=== PATIENT | male | born 1980 | race Caucasian/White ===

== ENCOUNTER 2020-07-05 09:33 | Outpatient (REF) | payer OTHER, SELFPAY ==
--- NOTE | ~2020-07-05 | XR_ITS ---
EXAMINATION: BILATERAL HAND X-RAY CLINICAL INFORMATION: Pain COMPARISON: None TECHNIQUE: 3 views of each hand FINDINGS: Bone alignment is normal. No fracture or dislocation is seen. The joint spaces are normal. There is a small 1 x 2 mm radiopaque density in the soft tissues projecting over the dorsal left hand overlying the distal shaft of the third metacarpal bone suggestive of a small soft tissue foreign body. Soft tissues are otherwise unremarkable. XR/XR hand RT 2V IMPRESSION: Small radiopaque soft tissue foreign body in the dorsal left hand otherwise unremarkable exam.
--- NOTE | ~2020-07-05 | XR_ITS ---
EXAMINATION: XR HIP, RIGHT CLINICAL INFORMATION: Pain COMPARISON: None TECHNIQUE: Two views of the right hip. FINDINGS: Bones and soft tissues are normal. No fracture. Alignment is anatomic. Hip joint space is maintained. XR/XR hip RT min 2V IMPRESSION: Normal right hip.
--- NOTE | ~2020-07-05 | XR_ITS ---
EXAMINATION: BILATERAL HAND X-RAY CLINICAL INFORMATION: Pain COMPARISON: None TECHNIQUE: 3 views of each hand FINDINGS: Bone alignment is normal. No fracture or dislocation is seen. The joint spaces are normal. There is a small 1 x 2 mm radiopaque density in the soft tissues projecting over the dorsal left hand overlying the distal shaft of the third metacarpal bone suggestive of a small soft tissue foreign body. Soft tissues are otherwise unremarkable. XR/XR hand LT 2V IMPRESSION: Small radiopaque soft tissue foreign body in the dorsal left hand otherwise unremarkable exam.
[2020-07-05 10:24] LABS: Hematocrit 44.2 % (42-52); Hemoglobin 14.7 g/dl (14.0-18.0); Mean Corpuscular HGB Conc 33.3 g/dl (31.0-36.0); Mean Corpuscular Hemoglobin 27.8 pg (27.0-33.0); Mean Corpuscular Volume 83.7 fL (80-98); Mean Platelet Volume 10.8 fL (9.4-12.4); Platelet Count 228 X10*3/uL (160-400); Red Blood Count 5.28 X10*6/uL (4.60-5.80); Red Cell Distribution Width 12.7 % (11.0-16.0)
[2020-07-05 10:41] LABS: Estimated Average Glucose 120 mg/dL; Hemoglobin A1c % 5.8 %
[2020-07-05 10:52] LABS: Alanine Aminotransferase 49 U/L (0-40); Albumin Level 4.6 g/dL (3.5-5.0); Alkaline Phosphatase 118 U/L (39-117); Anion Gap 14 (12-20); Aspartate Amino Transferase 29 U/L (5-37); Bilirubin Total 0.3 mg/dL (0.0-1.0); Blood Urea Nitrogen 20 mg/dL (9-16); Calcium 9.4 mg/dL (8.4-10.2); Carbon Dioxide 26 mmol/L (22-29); Chloride 105 mmol/L (96-108); Cholesterol 238 mg/dL; Estimated Glomerular Filt Rate > 60; Glucose Fasting 107 mg/dL (60-99); HDL Cholesterol 38 mg/dL; LDL Cholesterol Calculated 133 mg/dl; Potassium 4.4 mmol/L (3.3-5.1); Sodium 141 mmol/L (135-145); Total Protein 7.5 g/dL (6.5-8.0); Triglycerides 337 mg/dL
[2020-07-05 11:06] LABS: Creatinine Urine 165.94 mg/dL
[2020-07-05 11:15] LABS: TSH reflex Free T4 0.68 uIU/mL (0.32-4.0)
== END 2020-07-05 09:34 | disposition home or self-care (01) ==
LOC: HO.LAB 09:33
PROVIDERS: PCP Physician Assistant; Visit Provider Physician Assistant
DX: M79.642 Pain in left hand (principal); M25.551 Pain in right hip; M79.641 Pain in right hand; I10 Essential (primary) hypertension; E66.09 Other obesity due to excess calories; Z68.35 Body mass index [BMI] 35.0-35.9, adult
CPT/HCPCS: 36415; 73120; 73502; 80053; 80061; 82043; 83036; 84443; 85027

== ENCOUNTER 2020-12-01 13:49 | Outpatient (REF) | payer OTHER, SELFPAY | END 2020-12-01 13:50 | disposition home or self-care (01) | LOC: HO.LAB 13:49 | PROVIDERS: PCP Physician Assistant; Visit Provider Internal Medicine | DX: Z20.822 Contact with and (suspected) exposure to COVID-19 (principal) | CPT/HCPCS: C9803; U0003; U0005 ==

== ENCOUNTER 2020-12-10 09:33 | Outpatient (REF) | payer OTHER, SELFPAY | END 2020-12-10 09:34 | disposition home or self-care (01) | LOC: HO.LAB 09:33 | PROVIDERS: PCP Physician Assistant; Visit Provider Internal Medicine | DX: Z20.822 Contact with and (suspected) exposure to COVID-19 (principal) | CPT/HCPCS: C9803; U0003; U0005 ==

== ENCOUNTER 2021-06-07 08:09 | Outpatient (REF) | payer OTHER, SELFPAY ==
--- NOTE | ~2021-06-07 | US_ITS ---
EXAMINATION: US ABDOMEN COMPLETE CLINICAL INFORMATION: Epigastric pain. COMPARISON: None TECHNIQUE: Real-time imaging of the abdominal viscera. FINDINGS: PANCREAS: Normal. ABDOMINAL AORTA: The proximal, mid, and distal segments are normal in caliber. INFERIOR VENA CAVA: Visualized portions are normal. LIVER: The liver is normal in size. The liver contour is normal. Liver echotexture is increased probably representing fatty infiltration. There is a hypoechoic area adjacent to the gallbladder, characteristic location of focal fatty sparing. There is a calcification in the left lobe of the liver. No other focal hepatic lesion. There is no intrahepatic biliary duct dilatation seen. GALLBLADDER: The gallbladder is enlarged. There are gallstones. There is a dependent echogenic lesion in the gallbladder measuring 7 x 1.5 x 3.5 cm. It demonstrates some vascularity. This finding is concerning for possible gallbladder mass as opposed to tumefactive sludge. Follow-up CT or MRI with contrast is recommended. The gallbladder wall does not appear thickened anteriorly measuring 3 mm. There is no pericholecystic fluid. COMMON BILE DUCT: Normal in caliber measuring 0.3 cm in. RIGHT KIDNEY: Normal. No hydronephrosis. No renal calculi or focal parenchymal lesions. The kidney measures 11.5 cm in maximum dimension. LEFT KIDNEY: Normal. No hydronephrosis. No renal calculi or focal parenchymal lesions. The kidney measures 11.1 cm in maximum dimension. SPLEEN: Upper normal in size. The spleen measures 12.7 cm in maximum dimension. FREE FLUID: None. US/US abdomen complete IMPRESSION: Echogenic liver probably representing fatty infiltration. Abnormal appearing gallbladder with gallstones and 7 x 1.5 x 3.5 cm echogenic mass. Differential would include neoplasm and tumefactive sludge. Follow-up CT or MRI with and without contrast recommended. Findings will be communicated by the [facility] work flow renal case manager.
[2021-06-07 11:44] LABS: Hemoglobin 14.1 g/dl (14.0-18.0); Mean Corpuscular HGB Conc 34.4 g/dl (31.0-36.0); Mean Corpuscular Volume 81.5 fL (80.0-98.0); Mean Platelet Volume 10.9 fL (9.4-12.4); Platelet Count 224 X10*3/uL (160-400); Red Blood Count 5.03 X10*6/uL (4.60-5.80); Red Cell Distribution Width 12.7 % (11.0-16.0); White Blood Count 9.5 X10*3/uL (4.8-10.8)
[2021-06-07 11:52] LABS: Appearance Urine CLEAR; Color Urine YELLOW; Glucose Urine UA NEG (NEG); Leukocyte Esterase Urine NEG (NEG); Nitrite Urine NEG (NEG); PH 6.5 (5.0-8.0); Specific Gravity - Urine 1.015 (1.005-1.025); Urine Blood NEG (NEG); Urine Ketones NEG (NEG); Urine Protein NEG (NEG-TRACE)
[2021-06-07 12:11] LABS: Alanine Aminotransferase 28 U/L (0-40); Albumin Level 4.5 g/dL (3.5-5.0); Alkaline Phosphatase 100 U/L (39-117); Anion Gap 10 (12-20); Aspartate Amino Transferase 19 U/L (5-37); Bilirubin Total 0.5 mg/dL (0.0-1.0); Blood Urea Nitrogen 17 mg/dL (9-16); Calcium 9.5 mg/dL (8.4-10.2); Carbon Dioxide 27 mmol/L (22-29); Chloride 107 mmol/L (96-108); Cholesterol 230 mg/dL; Estimated Glomerular Filt Rate > 60; Glucose Fasting 101 mg/dL (60-99); HDL Cholesterol 31 mg/dL; Iron 91 mcg/dL (45-160); Lipase 36 U/L (8-78); Percent Iron Saturation 29 % (15-50); Potassium 4.4 mmol/L (3.3-5.1); Sodium 140 mmol/L (135-145); Total Iron Binding Capacity 309 mcg/dL (228-428); Total Protein 7.3 g/dL (6.5-8.0); Triglycerides 479 mg/dL; Unsaturated Iron Binding 218 ug/dL
[2021-06-07 12:17] LABS: TSH reflex Free T4 0.85 uIU/mL (0.32-4.0)
[2021-06-07 12:41] LABS: Estimated Average Glucose 120 mg/dL; Hemoglobin A1C 150.5165 umol/L; Hemoglobin A1c % 5.8 %
== END 2021-06-07 08:10 | disposition home or self-care (01) ==
LOC: HO.HMGCX 08:09
PROVIDERS: PCP Physician Assistant; Visit Provider Physician Assistant
DX: R10.13 Epigastric pain (principal); I10 Essential (primary) hypertension; R30.0 Dysuria; D50.9 Iron deficiency anemia, unspecified; R73.09 Other abnormal glucose
CPT/HCPCS: 36415; 76700; 80053; 80061; 81003; 83036; 83540; 83690; 84443; 85027

== ENCOUNTER → 2021-07-11 15:12 | Outpatient (BNVA) | payer OTHER, SELFPAY | PROVIDERS: PCP Physician Assistant; Referring Provider Physician Assistant; Visit Provider Surgery | DX: K80.20 Calculus of gallbladder without cholecystitis without obstruction (principal); Z91.018 Allergy to other foods; F17.210 Nicotine dependence, cigarettes, uncomplicated | CPT/HCPCS: 99202 ==

== ENCOUNTER 2021-07-15 09:06 | Outpatient (REF) | payer OTHER, SELFPAY ==
--- NOTE | ~2021-07-15 | CT_ITS ---
EXAMINATION: CT ABDOMEN AND PELVIS WITH CONTRAST CLINICAL INFORMATION: Abdominal pain. COMPARISON: Ultrasound abdomen 06/07/2021. TECHNIQUE: Multidetector volumetric images were obtained from the superior aspect of the liver through the pubic symphysis following administration 85 mL of Omnipaque 350 intravenous contrast. Sagittal and coronal reformatted images were obtained on the technologist's workstation. Oral contrast: No This CT examination was performed using dose optimization techniques as appropriate, variously including the following: *Automated exposure control *Adjustment of mA and/or kV according to patient size (this includes techniques or standardized protocols for targeted exams where dose is matched to indication/reason for exam; i.e. extremities or head) *Use of iterative reconstruction technique DLP: 511 mGy-cm FINDINGS: LUNG BASES: The visualized lung bases are unremarkable. LIVER, GALLBLADDER, AND BILIARY TREE: The liver is normal in size, shape, and hypoattenuation. There is a punctate calcification in left hepatic lobe. No focal hepatic lesion or biliary ductal dilatation is present. There is a large partially peripherally calcified stone with central hypodensity and a punctate central echogenic calcification likely a large gallstone. It measures approximately 3 cm in maximum length. Differential diagnosis includes peripherally calcified mass with central calcification. No wall thickening seen. PANCREAS: Unremarkable. SPLEEN: Unremarkable. ADRENAL GLANDS: Unremarkable. KIDNEYS AND URETERS: The kidneys are normal in size, shape, and attenuation. A 1 mm punctate calcification is seen in the right kidney midpole. No additional radiopaque calculi seen. There is no hydronephrosis. No perinephric stranding. There is a 1.3 cm cyst in the lower pole cortex left kidney. BLADDER: Unremarkable. GASTROINTESTINAL TRACT: Scattered stool and gas is seen in right colon. Rest of the colon and the small bowel loops are normal caliber. The appendix is normal caliber. The stomach is nondistended. There is no free air or free fluid seen. ABDOMINAL WALL: No significant hernia is appreciated. LYMPH NODES: Normal. VASCULAR: Unremarkable. PELVIC VISCERA: The prostate gland is normal size. OSSEOUS STRUCTURES: Unremarkable. CT/CT abdomen pelvis w con IMPRESSION: Mild hepatic steatosis with punctate calcification left hepatic lobe. Peripheral calcification with central calcified density likely laminated stone. Differential diagnoses may include a gallbladder mass, however, considered less likely. No wall thickening or pericholecystic fluid collection. Punctate calcification midpole right kidney and cyst lower pole left kidney. No hydronephrosis. Fleischner guidelines were followed.
[2021-07-15] MEDS: iohexoL 350 MG/ML 100 ML INFUS..BTL IV (09:40)
== END 2021-07-15 09:07 | disposition home or self-care (01) ==
LOC: HO.CT 09:06
PROVIDERS: PCP Physician Assistant; Visit Provider Physician Assistant
DX: K82.8 Other specified diseases of gallbladder (principal)
CPT/HCPCS: 74177; Q9967

== ENCOUNTER 2021-08-05 11:24 | Outpatient (REF) | payer OTHER, SELFPAY ==
[2021-08-05 12:37] LABS: COVID-19 Test Negative (Negative); IDNOW Serial# 16C4AD1C
== END 2021-08-05 11:25 | disposition home or self-care (01) ==
LOC: HO.LAB 11:24
PROVIDERS: Visit Provider Internal Medicine
DX: Z20.822 Contact with and (suspected) exposure to COVID-19 (principal)
CPT/HCPCS: 87635; C9803

== ENCOUNTER 2022-03-09 22:36 | Emergency (ER) | payer OTHER, SELFPAY ==
--- NOTE | ~2022-03-09 | CT_ITS ---
EXAMINATION: CT ABDOMEN AND PELVIS WITH CONTRAST CLINICAL INFORMATION: epigastric pain, nausea, vomiting COMPARISON: None TECHNIQUE: Multidetector volumetric images were obtained from the superior aspect of the liver through the pubic symphysis following administration 85 mL of Omnipaque 350 intravenous contrast. Sagittal and coronal reformatted images were obtained on the technologist's workstation. No contrast material is identified within the patient however, potentially due to a technical error. The examination is essentially noncontrast Oral contrast: No This CT examination was performed using dose optimization techniques as appropriate, variously including the following: *Automated exposure control *Adjustment of mA and/or kV according to patient size (this includes techniques or standardized protocols for targeted exams where dose is matched to indication/reason for exam; i.e. extremities or head) *Use of iterative reconstruction technique DLP: 660 mGy-cm FINDINGS: LUNG BASES: The visualized lung bases are unremarkable. LIVER, GALLBLADDER, AND BILIARY TREE: The liver is normal in size, shape, and attenuation. No focal hepatic lesion or biliary ductal dilatation is present. A few punctate calcifications are present in the liver, likely small granulomas. A 3.1 cm peripherally calcified gallstone is evident at the fundus of the gallbladder. A 9 mm gallstone is evident at the gallbladder neck. No appreciable gallbladder wall thickening or surrounding fat stranding or fluid. PANCREAS: Unremarkable. SPLEEN: Unremarkable. ADRENAL GLANDS: Unremarkable. KIDNEYS AND URETERS: The kidneys are normal in size, shape, and attenuation. No hydronephrosis, hydroureter, or calculi seen. No perinephric stranding. BLADDER: Largely empty. No stones or wall thickening. GASTROINTESTINAL TRACT: Stomach, small bowel, and colon are normal in caliber. No bowel wall thickening or surrounding inflammatory changes. Appendix is normal. No intraperitoneal free fluid or free air. ABDOMINAL WALL: No significant hernia is appreciated. LYMPH NODES: Normal. VASCULAR: Unremarkable. PELVIC VISCERA: The prostate and seminal vesicles are unremarkable. OSSEOUS STRUCTURES: No acute osseous abnormalities in the abdomen and pelvis. No fracture. CT/CT abdomen pelvis w IV con IMPRESSION: 1. Cholelithiasis without CT findings of acute cholecystitis. 2. Otherwise, no acute intra-abdominal or intrapelvic abnormalities are identified. Of note, no contrast is evident within the vasculature though contrast material was injected. This likely corresponds to a technical error. Fleischner guidelines were followed.
[2022-03-09 22:39] VITALS: BP 143/77; PULSE 76; RESP 18; TEMP 36.6; O2SAT 98; BMI 33.5
[2022-03-09 22:58] LABS: MANUAL DIFF FLAG NO
[2022-03-09 22:59] LABS: Basophils Absolute Auto 0.1 X10*3/uL (0.0-0.2); Basophils Percent Auto 0.4 % (0-2); Eosinophils Absolute Auto 0.4 X10*3/uL (0.0-0.4); Eosinophils Percent Auto 2.7 % (0-4); Hematocrit 40.9 % (42.0-52.0); Hemoglobin 14.1 g/dl (14.0-18.0); Imm Gran Abs Auto 0.04 X10*3/uL (0.00-0.03); Imm Gran Pct Auto 0.3 % (0.0-0.4); Lymphocytes Absolute Auto 4.9 X10*3/uL (1.2-4.9); Lymphocytes Percent Auto 33.1 % (20-40); Mean Corpuscular HGB Conc 34.5 g/dl (31.0-36.0); Mean Corpuscular Hemoglobin 28.3 pg (27.0-33.0); Mean Platelet Volume 10.1 fL (9.4-12.4); Monocytes Absolute Auto 0.7 X10*3/uL (0.1-1.2); Neutrophils Absolute Auto 8.6 x10*3/uL (2.0-8.3); Neutrophils Percent Auto 58.5 % (45-73); Platelet Count 228 X10*3/uL (160-400); Red Blood Count 4.99 X10*6/uL (4.60-5.80); Red Cell Distribution Width 12.8 % (11.0-16.0); White Blood Count 14.7 X10*3/uL (4.8-10.8)
[2022-03-09 23:31] LABS: Alanine Aminotransferase 38 U/L (0-40); Alkaline Phosphatase 121 U/L (39-117); Anion Gap 15 (12-20); Aspartate Amino Transferase 21 U/L (5-37); Bilirubin Direct < 0.2 mg/dL (0.0-0.5); Bilirubin Total 0.3 mg/dL (0.0-1.0); Blood Urea Nitrogen 20 mg/dL (9-16); Calcium 9.8 mg/dL (8.4-10.2); Carbon Dioxide 28 mmol/L (22-29); Chloride 102 mmol/L (96-108); Creatinine Clr Calc Pharmacy 97.3; Estimated Glomerular Filt Rate > 60; Glucose Random 138 mg/dL (60-115); Lipase 127 U/L (8-78); Potassium 3.8 mmol/L (3.3-5.1); Sodium 141 mmol/L (135-145); Total Protein 7.7 g/dL (6.5-8.0)
--- NOTE | 2022-03-10 00:25 | ED_ITS ---
HPI - Abdominal Pain General Chief Complaint: Abdominal Pain <IGLESIA Urias Last Filed: 03/10/22 01:20> Stated Complaint: abd pain <IGLESIA Urias Last Filed: 03/10/22 01:20> Time Seen by Provider: 03/10/22 00:23 <IGLESIA Urias Last Filed: 03/10/22 01:20> Source: patient <IGLESIA Urias Last Filed: 03/10/22 01:20> Mode of arrival: ambulatory <IGLESIA Urias Last Filed: 03/10/22 01:20> Limitations: no limitations <IGLESIA Urias Last Filed: 03/10/22 01:20> History of Present Illness HPI narrative: 41-year-old male presenting to the emergency department with epigastric/left-sided abdominal pain since this morning. Patient tells me that pain started suddenly, he constantly has 9/10 pain and intermittently he gets stabbing pain that he rates a 10/10 he tells me the pain is so bad he had an episode of vomiting and nausea. He reports he is sweating when he gets the pain. He tells me he is currently feeling nauseous. Unable to tell me what makes the pain better or worse. Tells me he has not been able to eat. No history of diverticulitis, appendicitis. Patient tells me he is supposed to get his gallbladder out however has not gotten it out. Denies chest pain, shortness of breath, fevers, chills, headache, vision changes, urinary symptom or weakness. <IGLESIA Urias Last Filed: 03/10/22 01:20> Related Data Home Medications: Previous Rx's Medication Instructions Recorded nicotine (polacrilex) 4 mg gum 4 mg buccal Q2H 30 days #50 ea 02/01/21 (Nicorette) ProAir HFA 90 mcg/actuation 2 puff inhalation Q4-6H PRN 05/09/21 aerosol inhaler (albuterol sulfate) shortness of breath or wheezing 30 days #8.5 grams lisinopril 5 mg tablet 5 mg PO DAILY 30 days #30 tabs 05/09/21 nicotine 14 mg/24 hr daily 1 patch transdermal DAILY 14 days 05/09/21 transdermal patch #14 ea omeprazole 20 mg capsule,delayed 20 mg PO DAILY 90 days #90 caps 08/03/21 release aluminum-mag hydroxide-simethicone 5 ml PO 5XD PRN dyspepsia #355 mL 03/10/22 200 mg-200 mg-20 mg/5 mL oral susp (Maalox Advanced) <IGLESIA Urias Last Filed: 03/10/22 01:20> Allergies/Adverse Reactions: Allergies Allergy/AdvReac Type Severity Reaction Status Date / Time avocado Allergy Mild Lip Verified 07/11/21 15:20 Swelling fresh fruit Allergy Unknown lip Uncoded 05/09/21 08:37 swelling, throat itch <IGLESIA Urias Last Filed: 03/10/22 01:20> Review of Systems Review of Systems Constitutional : No Weight loss, No Fever, No Chills, No Fatigue, No Malaise ENT/Mouth : No sore throat, No Rhinorrhea Eyes: No Eye Pain, No Swelling, No Redness Cardiovascular : No Chest Pain, No SOB, No Dyspnea on Exertion, No Orthopnea, No Edema, No Palpitations Respiratory : No Cough, No Sputum, No Wheezing Gastrointestinal : + Nausea, + Vomiting, No Diarrhea, No Constipation, + abdominal Pain, No Hematochezia, No Melena Genitourinary : No Dysuria, No Urinary Frequency, No Hematuria, Musculoskeletal : No joint pain, No Myalgias, No Joint Swelling Skin : No Skin Lesions, No rash Neuro : No Weakness, No Numbness, No Dizziness, No Headache Psych : No Anxiety/Panic, No Depression All other systems reviewed and are negative <IGLESIA Urias Last Filed: 03/10/22 01:20> Yes all other systems are reviewed and are negative <IGLESIA Urias Last Filed: 03/10/22 01:20> [facility] Past Medical History Attestation statement: The following information was validated with the patient. <IGLESIA Urias Last Filed: 03/10/22 01:20> Source: old records reviewed and nursing notes reviewed <IGLESIA Urias Last Filed: 03/10/22 01:20> Medical History: Medical History Gallstones GERD (gastroesophageal reflux disease) <IGLESIA Urias - Last Filed: 03/10/22 01:20> Surgical History: Surgical History No pertinent past surgical history <IGLESIA Urias - Last Filed: 03/10/22 01:20> Family History Family History: Family History Father Asthma Diabetes Mother Hypertension Brother In good health Sister In good health Sister In good health Sister In good health Sister In good health Son In good health <IGLESIA Urias - Last Filed: 03/10/22 01:20> Social History Social History: Social History Housing: House Alcohol intake: never Patient Tobacco Use Status: Current everyday Tobacco user Cigarettes Per Day: 10 Smoked in Last 30 Days: Yes e-Cigarette/Vaping Use: Never Used Use of substances other than those prescribed or required for medical reasons: No Advance Directives: No Advance Directives Information Provided: Yes Current occupational status: employed 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 [employer] <IGLESIA Urias - Last Filed: 03/10/22 01:20> Physical Exam ED Vital Signs: Vital Signs - 24 hr 03/09/22 22:39 03/10/22 01:04 Temperature 97.9 F Pulse Rate 76 70 Respiratory Rate 18 20 Blood Pressure 143/77 H 190/89 H Pulse Oximetry 98 95 Oxygen Delivery Method Room Air Room Air BMI result Body Mass Index 33.5 vss <IGLESIA Urias - Last Filed: 03/10/22 01:20> Vital Signs - 24 hr 03/09/22 22:39 03/10/22 01:04 Temperature 97.9 F Pulse Rate 76 70 Respiratory Rate 18 20 Blood Pressure 143/77 H 190/89 H Pulse Oximetry 98 95 Oxygen Delivery Method Room Air Room Air BMI result Body Mass Index 33.5 <Etienne Wright MD - Last Filed: 03/10/22 02:18> Appearance: Alert.? Oriented X3.? No acute distress.? Head: Normocephalic, atraumatic, no step-offs or deformities Eyes: Pupils equal, round and reactive to light.? Neck: Normal inspection.? Neck supple.? CVS: Normal heart rate and rhythm.? Pulses normal.? Respiratory: No respiratory distress.? Breath sounds normal.? Abdomen: Soft and + diffuse tenderness.? Skin: Skin warm and dry.? Normal skin color.? Normal skin turgor.? Extremities: No lower extremity edema.? No calf ttp. 5/5 strength to bilateral upper and lower extremities Neuro: Oriented X 3.? No motor deficit.? No sensory deficit. CN 2-12 intact <IGLESIA Urias - Last Filed: 03/10/22 01:20> Course Reevaluation(s) Reevaluation #1: CBC with slight leukocytosis likely reactive from nausea and vomiting, chemistry with slightly elevated BUN likely secondary to dehydration, will give fluids. Lipase slightly elevated however not meeting criteria for pancreatitis. <IGLESIA Urias - Last Filed: 03/10/22 01:20> Time: 00:28 <IGLESIA Urias - Last Filed: 03/10/22 01:20> Reevaluation #2: Urine clean. Patient given medication for pain, and a GI cocktail. Sign- out given to . Pending CT, reeval and dispo based off these <IGLESIA Urias - Last Filed: 03/10/22 01:20> Time: 01:19 <IGLESIA Urias - Last Filed: 03/10/22 01:20> Medications Administered Generic Name Dose Route Start Last Admin Trade Name Freq PRN Reason Stop Dose Admin Sodium Chloride 1,000 mls @ 999 mls/hr 03/10/22 01:30 03/10/22 01:28 Ns IV 03/10/22 02:30 999 mls/hr .Q1H1M AMAYA Administration Discontinued Medications Generic Name Dose Route Start Last Admin Trade Name Freq PRN Reason Stop Dose Admin Al Hydroxide/Mg Hydroxide 30 ml 03/10/22 00:23 03/10/22 01:01 Magnesium Hydrox/Alum Hydrox 30 Ml Oral.Susp PO 03/10/22 00:24 30 ml ONCE ONE Administration Belladonna Alkaloids/Phenobarbital 10 ml 03/10/22 00:23 03/10/22 01:01 Phenobarb/Hyoscy/Atropine/Scop 10 Ml Elixir PO 03/10/22 00:24 10 ml ONCE ONE Administration Iohexol 85 ml 03/10/22 01:23 03/10/22 01:24 Iohexol 350 Mg/Ml 100 Ml Infus..Btl IV 03/10/22 01:24 85 ml ONCE ONE Administration Morphine Sulfate 4 mg 03/10/22 00:38 03/10/22 01:01 Morphine Sulfate 4 Mg/Ml Cartridge IVPUSH 03/10/22 00:39 4 mg ONCE ONE Administration Protocol <IGLESIA Urias - Last Filed: 03/10/22 01:20> Medications Administered Generic Name Dose Route Start Last Admin Trade Name Freq PRN Reason Stop Dose Admin Sodium Chloride 1,000 mls @ 999 mls/hr 03/10/22 01:30 03/10/22 01:28 Ns IV 03/10/22 02:30 999 mls/hr .Q1H1M AMAYA Administration Discontinued Medications Generic Name Dose Route Start Last Admin Trade Name Freq PRN Reason Stop Dose Admin Al Hydroxide/Mg Hydroxide 30 ml 03/10/22 00:23 03/10/22 01:01 Magnesium Hydrox/Alum Hydrox 30 Ml Oral.Susp PO 03/10/22 00:24 30 ml ONCE ONE Administration Belladonna Alkaloids/Phenobarbital 10 ml 03/10/22 00:23 03/10/22 01:01 Phenobarb/Hyoscy/Atropine/Scop 10 Ml Elixir PO 03/10/22 00:24 10 ml ONCE ONE Administration Iohexol 85 ml 03/10/22 01:23 03/10/22 01:24 Iohexol 350 Mg/Ml 100 Ml Infus..Btl IV 03/10/22 01:24 85 ml ONCE ONE Administration Morphine Sulfate 4 mg 03/10/22 00:38 03/10/22 01:01 Morphine Sulfate 4 Mg/Ml Cartridge IVPUSH 03/10/22 00:39 4 mg ONCE ONE Administration Protocol <Etienne Wright MD - Last Filed: 03/10/22 02:18> MDM - Abdominal Pain MDM Narrative Medical decision making narrative: 0025 41 year old male presents w/ epigastric pain & L sided abd pain, and nausea vomiting X 1 day PE with diffuse tenderness on palpation. RRR. Lungs clear. Abd soft non tender non distended. Neuro nonfocal Likely GERD or gastritis. Other differentials include pancreatitis, diverticulitis. Unlikely acute abdomen, cholecystitis, appendicitis, AAA, kidney stones, UTI or cystitis. Plan at this time lab, imaging, urine. <IGLESIA Urias - Last Filed: 03/10/22 01:20> 0025 41 year old male presents w/ epigastric pain & L sided abd pain, and nausea vomiting X 1 day PE with diffuse tenderness on palpation. RRR. Lungs clear. Abd soft non tender non distended. Neuro nonfocal Likely GERD or gastritis. Other differentials include pancreatitis, diverticulitis. Unlikely acute abdomen, cholecystitis, appendicitis, AAA, kidney stones, UTI or cystitis. Plan at this time lab, imaging, urine. 215 am patient seen and re-evaluated patient does have a history of gallstone which is a big stone 3.1 cm without evidence of cholecystitis or gallbladder wall thickening has slightly elevated lipase but pancreas is normal and CT scan patient able to eat without significant pain right upper quadrant pain was seen by surgeon in the past at that time patient refused surgery but at this time patient been having pain for last 4 days would like to go for surgery advised to follow with surgeon as outpatient <Etienne Wright MD - Last Filed: 03/10/22 02:18> Medical Records Attestation: I reviewed the patient's medical records. <IGLESIA Urias - Last Filed: 03/10/22 01:20> Lab Data Attestation: I reviewed the patient's lab results. <IGLESIA Urias - Last Filed: 03/10/22 01:20> Result diagrams: : 03/09/22 22:52 03/09/22 22:52 <IGLESIA Urias - Last Filed: 03/10/22 01:20> Labs: Lab Results 03/09/22 03/09/22 03/10/22 Range/Units 22:52 22:52 01:09 WBC 14.7 H (4.8-10.8) X10*3/uL RBC 4.99 (4.60-5.80) X10*6/uL Hgb 14.1 (14.0-18.0) g/dl Hct 40.9 L (42.0-52.0) % MCV 82.0 (80.0-98.0) fL MCH 28.3 (27.0-33.0) pg MCHC 34.5 (31.0-36.0) g/dl RDW 12.8 (11.0-16.0) % Plt Count 228 (160-400) X10*3/uL MPV 10.1 (9.4-12.4) fL Immature Gran % (Auto) 0.3 (0.0-0.4) % Neut % (Auto) 58.5 (45-73) % Lymph % (Auto) 33.1 (20-40) % [place] % (Auto) 5.0 (2-11) % Eos % (Auto) 2.7 (0-4) % Baso % (Auto) 0.4 (0-2) % Lymph # (Auto) 4.9 (1.2-4.9) X10*3/uL [place] # (Auto) 0.7 (0.1-1.2) X10*3/uL Eos # (Auto) 0.4 (0.0-0.4) X10*3/uL Baso # (Auto) 0.1 (0.0-0.2) X10*3/uL Abs Immat Gran (auto) 0.04 H (0.00-0.03) X10*3/uL Absolute Neuts (auto) 8.6 H (2.0-8.3) x10*3/uL Absolute Nucleated RBC 0.000 (0.0-0.012) X10*3/uL Nucleated RBC % (auto) 0.0 (0.0-0.2) /100WBC Sodium 141 (135-145) mmol/L Potassium 3.8 (3.3-5.1) mmol/L Chloride 102 (96-108) mmol/L Carbon Dioxide 28 (22-29) mmol/L Anion Gap 15 (12-20) BUN 20 H (9-16) mg/dL Creatinine 1.13 (0.5-1.4) mg/dL Estim Creat Clear Calc 97.3 Estimated GFR > 60 Random Glucose 138 H (60-115) mg/dL Calcium 9.8 (8.4-10.2) mg/dL Total Bilirubin 0.3 (0.0-1.0) mg/dL Direct Bilirubin < 0.2 (0.0-0.5) mg/dL AST 21 (5-37) U/L ALT 38 (0-40) U/L Alkaline Phosphatase 121 H D (39-117) U/L Total Protein 7.7 (6.5-8.0) g/dL Albumin 4.6 (3.5-5.0) g/dL Lipase 127 H (8-78) U/L Urine Color Yellow Urine Appearance Turbid Urine pH 7.5 (5.0-9.0) Ur Specific [place] 1.015 (1.005-1.025) Urine Protein Negative (Neg-Trace) mg/dL Urine Glucose (UA) Negative (Negative) mg/dL Urine Ketones Negative (Negative) mg/dL Urine Blood Negative (Negative) Urine Nitrite Negative (Negative) Ur Leukocyte Esterase Negative (Negative) <IGLESIA Urias - Last Filed: 03/10/22 01:20> Lab Results 03/09/22 03/09/22 03/10/22 Range/Units 22:52 22:52 01:09 WBC 14.7 H (4.8-10.8) X10*3/uL RBC 4.99 (4.60-5.80) X10*6/uL Hgb 14.1 (14.0-18.0) g/dl Hct 40.9 L (42.0-52.0) % MCV 82.0 (80.0-98.0) fL MCH 28.3 (27.0-33.0) pg MCHC 34.5 (31.0-36.0) g/dl RDW 12.8 (11.0-16.0) % Plt Count 228 (160-400) X10*3/uL MPV 10.1 (9.4-12.4) fL Immature Gran % (Auto) 0.3 (0.0-0.4) % Neut % (Auto) 58.5 (45-73) % Lymph % (Auto) 33.1 (20-40) % [place] % (Auto) 5.0 (2-11) % Eos % (Auto) 2.7 (0-4) % Baso % (Auto) 0.4 (0-2) % Lymph # (Auto) 4.9 (1.2-4.9) X10*3/uL [place] # (Auto) 0.7 (0.1-1.2) X10*3/uL Eos # (Auto) 0.4 (0.0-0.4) X10*3/uL Baso # (Auto) 0.1 (0.0-0.2) X10*3/uL Abs Immat Gran (auto) 0.04 H (0.00-0.03) X10*3/uL Absolute Neuts (auto) 8.6 H (2.0-8.3) x10*3/uL Absolute Nucleated RBC 0.000 (0.0-0.012) X10*3/uL Nucleated RBC % (auto) 0.0 (0.0-0.2) /100WBC Sodium 141 (135-145) mmol/L Potassium 3.8 (3.3-5.1) mmol/L Chloride 102 (96-108) mmol/L Carbon Dioxide 28 (22-29) mmol/L Anion Gap 15 (12-20) BUN 20 H (9-16) mg/dL Creatinine 1.13 (0.5-1.4) mg/dL Estim Creat Clear Calc 97.3 Estimated GFR > 60 Random Glucose 138 H (60-115) mg/dL Calcium 9.8 (8.4-10.2) mg/dL Total Bilirubin 0.3 (0.0-1.0) mg/dL Direct Bilirubin < 0.2 (0.0-0.5) mg/dL AST 21 (5-37) U/L ALT 38 (0-40) U/L Alkaline Phosphatase 121 H D (39-117) U/L Total Protein 7.7 (6.5-8.0) g/dL Albumin 4.6 (3.5-5.0) g/dL Lipase 127 H (8-78) U/L Urine Color Yellow Urine Appearance Turbid Urine pH 7.5 (5.0-9.0) Ur Specific [place] 1.015 (1.005-1.025) Urine Protein Negative (Neg-Trace) mg/dL Urine Glucose (UA) Negative (Negative) mg/dL Urine Ketones Negative (Negative) mg/dL Urine Blood Negative (Negative) Urine Nitrite Negative (Negative) Ur Leukocyte Esterase Negative (Negative) <Etienne Wright MD - Last Filed: 03/10/22 02:18> Critical Care Time Critical Care Time Critical Care Time: No <IGLESIA Urias - Last Filed: 03/10/22 01:20> Discharge Plan Discharge Clinical Impression: Abdominal pain, GERD (gastroesophageal reflux disease) <IGLESIA Urias - Last Filed: 03/10/22 01:20> Patient Disposition: Home, Self-Care <IGLESIA Urias - Last Filed: 03/10/22 01:20> Instructions: Abdominal Pain (ED) <IGLESIA Urias - Last Filed: 03/10/22 01:20> Additional Instructions: Take your medications as prescribed. If you were prescribed antibiotics today, it is important that you take your medication to their entirety, do not skip any doses, do not finish them early. Follow-up with your primary care provider this week. Follow-up with gastroenterology, information below. You may require further intervention to investigate these symptoms. Return to the emergency department with new or worsening symptoms. Such as fevers, chills, chest pain, shortness of breath, nausea, vomiting, dizziness, headache, vision changes, lethargy In case of emergency call 911 <IGLESIA Urias - Last Filed: 03/10/22 01:20> Prescriptions: New alum-mag hydroxide-simeth [Maalox Advanced] 200-200-20 mg/5 mL suspension 5 ml PO 5XD PRN (Reason: dyspepsia) Qty: 355 0RF Rx Instructions: administer between meals and at bedtime No Action omeprazole 20 mg capsule,delayed release(DR/EC) 20 mg PO DAILY 90 Days Qty: 90 2RF nicotine (polacrilex) [Nicorette] 4 mg gum 4 mg buccal Q2H 30 Days Qty: 50 1RF lisinopril 5 mg tablet 5 mg PO DAILY 30 Days Qty: 30 3RF nicotine 14 mg/24 hr patch 24 hour 1 patch transdermal DAILY 14 Days Qty: 14 0RF albuterol sulfate [ProAir HFA] 90 mcg/actuation HFA aerosol inhaler 2 puff inhalation Q4-6H PRN (Reason: shortness of breath or wheezing) 30 Days Qty: 8.5 3RF <IGLESIA Urias - Last Filed: 03/10/22 01:20> Referrals: [facility] [Provider Group] - 2 days Dago Mari PA-C [Primary Care Provider] - 2 days <IGLESIA Urias - Last Filed: 03/10/22 01:20> Stand Alone Forms: Work/School Release <IGLESIA Urias - Last Filed: 03/10/22 01:20>
[2022-03-10] MEDS: PHENobarb/Hyoscy/Atropine/Scop 10 ML ELIXIR PO (01:01)
[2022-03-10] MEDS: Magnesium Hydrox/Alum Hydrox 30 ML ORAL.SUSP PO (01:01)
[2022-03-10] MEDS: Morphine Sulfate 4 MG/ML CARTRIDGE IVPUSH (01:01)
[2022-03-10 01:04] VITALS: BP 190/89; PULSE 70; RESP 20; O2SAT 95
[2022-03-10 01:15] LABS: Appearance Urine Turbid; Color Urine Yellow; Glucose Urine UA Negative (Negative); Leukocyte Esterase Urine Negative (Negative); Nitrite Urine Negative (Negative); PH 7.5 (5.0-9.0); Specific Gravity - Urine 1.015 (1.005-1.025); Urine Blood Negative (Negative); Urine Ketones Negative (Negative); Urine Protein Negative (Neg-Trace)
[2022-03-10] MEDS: iohexoL 350 MG/ML 100 ML INFUS..BTL 85 ML IV (01:24)
[2022-03-10] MEDS: 0.9 % Sodium Chloride 1,000 ML 999 ML IV (01:28)
[2022-03-10 01:32] LABS: Albumin Level 4.6 g/dL (3.5-5.0)
[2022-03-10] MEDS: Ketorolac Tromethamine 30 MG/ML VIAL IVPUSH (02:24)
== END 2022-03-10 02:31 | disposition home or self-care (01) ==
PROVIDERS: Emergency Medicine; Physician Assistant; Emergency Provider Internal Medicine; PCP Physician Assistant
DX: K21.9 Gastro-esophageal reflux disease without esophagitis (principal); R10.13 Epigastric pain; F17.210 Nicotine dependence, cigarettes, uncomplicated; Z79.899 Other long term (current) drug therapy; Z71.6 Tobacco abuse counseling
CPT/HCPCS: 36415; 74177; 80053; 81003; 82248; 83690; 85025; 96361; 96374; 96375; 99284; J1885; J2270; Q9967

== ENCOUNTER 2024-04-01 15:14 | Outpatient (AMB) | payer OTHER, SELFPAY ==
--- NOTE | 2024-04-01 15:23 | A.OFFPC_ITS ---
Vital Signs 04/01/24 15:32 Height 5 ft 7 in Weight 216 lb 4 oz BMI 33.9 BP 142/92 H Blood Pressure Location Lt brachial Position Sitting Pulse 84 Pulse Source Pulse Oximeter Pulse Oximetry (%) 97 Oxygen Delivery Method Room Air Intake Visit Reasons: PErequest Intake Note: Patient is here today for a physical. Dinkey Dispatcher Required: No Accompanied by: Self / Same As Patient Allergies avocado Allergy (Mild, Verified 04/01/24 15:37) Lip Swelling fresh fruit Allergy (Unknown, Uncoded 04/01/24 15:37) lip swelling, throat itch Medication List - Last Reconciled 04/01/24 by Dago Mari PA-C albuterol sulfate 90 mcg/actuation 2 puffs inhalation Q4-6H PRN 30 days NS alum-mag hydroxide-simeth 200-200-20 mg/5 mL (Maalox Advanced) 5 mL PO 5XD PRN lisinopril 5 mg PO DAILY 30 days nicotine 1 patch transdermal DAILY 14 days omeprazole 20 mg PO DAILY 90 days Tobacco use date assessed: 04/01/24 Dental Screening Dental Screen Date: 04/01/24 Did you have a dental visit in the last 12 months?: No Did you have a dental problem in the last 6 months where you did not have access to dental care?: No Was dental information given to patient?: Yes HPI PErequest HPI Details Patient is a 43 -year-old male here today for annual physical. Has not been seen in over 2 years in his reestablishing care.. patient has a past medical history significant for tobacco use disorder, hypertension, GERD.? concerns--> patient reports having an episode of bilateral flank pain that was short-lived and has resolved spontaneously. Of note does have a history of gallstones. He also reports having itchiness and mild swelling when eating certain fruits. He would like to do allergy testing to know what foods to refrain from. HTN : Patient's blood pressure elevated today in office. Has been out of lisinopril quite some time. .. Tobacco dependency: He does admit to continuing to smoking half a pack of cigarettes per day. He does report cutting down he has not have as much stress in his life. Vaccine: Up-to-date with tetanus and COVID vaccines. 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 1. Little interest or pleasure in doing things: not at all 2. Feeling down, depressed, or hopeless: not at all 3. Trouble falling or staying asleep, or sleeping too much: not at all 4. Feeling tired or having little energy: not at all 5. Poor appetite or overeating: not at all 6. Feeling bad about yourself - or that you are a failure or have let yourself or your family down: not at all 7. Trouble concentrating on things, such as reading the newspaper or watching television: not at all 8. Moving or speaking so slowly that other people could have noticed. Or the opposite - being so fidgety or restless that you have been moving around a lot more than usual: not at all 9. Thoughts that you would be better off or of hurting yourself in some way: not at all Total score: 0 Depression Screening Interpretation: Negative Depression Screening Done: Yes 54809 - PHQ-9 Billing: Yes Source: Developed by Drs. Jack Singh, Nola Bernal, Ruy Lowe and colleagues, with an educational mary ellen from [employer]. Thrive Questionnaire Date Thrive assessed: 04/01/24 I am a: Patient What is your living situation today?: I have a steady place to live Within the past 12 months, did the food you bought not last and you didn't have the money to get more?: I choose not to answer this question Within the past 12 months, did you worry whether your food would run out before you got money to buy more?: I choose not to answer this question Do you have trouble paying for medicines?: Yes Do you have trouble getting transportation to medical appointments?: No Do you have trouble paying your heating and electricity bill?: No Do you have trouble taking care of your child, family member or friend?: No Do you have trouble with day-to-day activities such as bathing, preparing meals, shopping, managing finances, etc.?: No Are you currently unemployed and looking for a job?: Yes Are you interested in more education?: No Please select the resources that you would like help with: None Currently or been in a relationship where the following occur: I choose not to answer THRIVE Score: 0 AUDIT C Alcohol Use Questionnaire (AUDIT-C) 1. How often do you have a drink containing alcohol?: Never 3. How often do you have six or more drinks on one occasion?: Never Total Score: 0 MARGARITA-7 AMB Questionnaire MARGARITA-7 Date MARGARITA - 7 assessed: 04/01/24 Feeling nervous, anxious, or on edge: 0 = Not at all Not being able to stop or control worryin = Not at all Worrying too much about different things: 0 = Not at all Trouble relaxin = Not at all Being so restless that it is hard to sit still: 0 = Not at all Becoming easily annoyed or irritable: 0 = Not at all Feeling afraid as if something awful might happen: 0 = Not at all Total MARGARITA-7 score (0-4 normal; 5-9 mild; 10-14 moderate; 15-21 severe): 0 Source: Developed by Drs. Jack Singh, Nola Bernal, Ruy Lowe and colleagues, with an educational mary ellen from [employer]. MARGARITA-7 Assessment Billing MARGARITA-7 Assessment Tool: MARGARITA-7 Assessment 84537 Review of Systems Const Denies body aches, Denies chills, Denies excessive sweating, Denies fatigue, Denies fever(s) and Denies headache(s) Eyes Denies blurry vision ENT Denies dysphagia, Denies vertigo, Denies dizziness, Denies headache(s), Denies hearing loss and Denies tinnitus Card Denies chest pain, Denies chest pain with activity, Denies syncope, Denies irregular heart rhythm and Denies dyspnea Resp Denies chest congestion, Denies cough, Denies hemoptysis, Denies dyspnea and Denies wheezing GI Denies abdominal pain, Denies melena, Denies hematochezia, Denies coffee ground emesis, Denies dysphagia, Denies diarrhea, Denies nausea and Denies vomiting Denies difficulty urinating, Denies dysuria, Denies urinary frequency, Denies urinary hesitancy and Denies urinary urgency Musc Denies arthralgias, Denies limited range of motion, Denies muscle cramps and Denies muscle weakness Skin/Breast Denies rash and Denies skin ulcer Neuro Denies Abnormal speech present, Denies confusion, Denies vertigo, Denies dizziness, Denies syncope, Denies headache(s), Denies memory loss and Denies seizure-like activity Psych Denies anxiety, Denies confusion, Denies depression, Denies memory loss, Denies panic attacks and Denies paranoia Endo Denies excessive sweating, Denies fatigue, Denies flushing, Denies polydipsia and Denies polyuria Aller/Immun Denies wheezing Physical exam (Primary Care) Vital Signs: Last Vital Signs Pulse 84 04/01/24 15:32 BP 142/92 H 04/01/24 15:32 Pulse Ox 97 04/01/24 15:32 Oxygen Delivery Method Room Air 04/01/24 15:32 BMI result Body Mass Index 33.9 Tobacco/Smoking Status: Tobacco use Status Tobacco use date assessed 04/01/24 04/01/24 15:35 Patient Tobacco Use Status Current everyday Tobacco 04/01/24 15:26 e-Cigarette/Vaping Use Never Used 04/01/24 15:26 Are you ready to quit: No Tobacco cessation counseling provided: Yes Items discussed: Nicotine replacement Relapse Prevention: discussed the importance of a supportive environment, discussed negative mood or depression after quitting, weight gain after smoking is common and discussed dietary, exercise and/or lifestyle changes Number of minutes spent counselin CPT code: 23905 - 4-10 Minutes PHQ-9: PHQ-9 Score PHQ-9: Total score 0 04/01/24 15:54 Depression Screening Interpretation: Negative Thrive Assessment: Date of Thrive Assessment Date Thrive assessed 04/01/24 04/01/24 15:26 Currently or been in a relationship where the following occur: I choose not to answer Const General: cooperative, comfortable, no acute distress, alert and awake; No confusion Orientation/consciousness: oriented to person, oriented to place, patient oriented x3 and No confusion HENMT Head: Yes normocephalic Ears: external ears normal and TM's normal bilaterally Face and sinus: No sinus tenderness Mouth: Normal oral and palatal mucosa present and tongue normal Teeth and gingiva: dentition normal and gingiva normal Throat: Yes posterior oropharynx normal, Yes tonsils normal and Yes uvula midline Eyes Conjunctivae: conjunctivae normal Sclerae: sclerae normal Pupils: Equal, round and reactive pupils present EOM: EOMs intact bilaterally Direct Ophthalmoscopy: No no photophobia Neck Neck: Yes no lymphadenopathy, No tender and Yes no JVD Thyroid: Thyroid normal Carotids: no bruits Chest Chest palpation & inspection: no tenderness Resp Effort & Inspection: normal respiratory effort, no audible wheezes, not labored and no stridor Auscultation: no crackles, no rales, no rhonchi and no wheezes Cardio Jugular venous distension: no JVD Rate: regular rate, not bradycardic and not tachycardic Rhythm: regular rhythm Bruits: no carotid bruits Peripheral pulses: Peripheral pulses 2+ throughout GI Inspection: Yes normal to inspection, No abdominal wall ecchymosis and No visibl e herniation Palpation (GI): Soft to palpation, nontender, no guarding, not rigid and No hepatosplenomegaly present Auscultation: normoactive bowel sounds General: Yes no CVA tenderness Back/Spine/Pelvis Back: no CVA tenderness and No back tenderness Cervical Spine: cervical ROM normal Thoracic/Lumbar Spine: thoracic and lumbar spine normal to inspection, straight leg raise negative bilaterally, No thoraco-lumbar ROM limited and No lumbar spinal tenderness Skin Lesions: no lesions Rashes: no rashes Wounds: no wounds Neuro General: oriented to person, oriented to place, patient oriented x3, CN's II-XI intact bilaterally and No confusion Cranial nerves: Yes Equal, round and reactive pupils present and Yes Normal accommodation reflex present Cognition (Neuro): normal cognition Speech: No Abnormal speech present Gait exam (Neuro): Normal gait present Motor exam (neuro): 5/5 motor strength present throughout Extrem Right upper extremity: full ROM; no cyanosis Left upper extremity: full ROM; no cyanosis Right lower extremity: no edema Left lower extremity: no edema Psych Appearance: grossly normal Mental Status: mental status grossly normal Affect: normal affect Attitude: cooperative Thought process: Normal thought process present Office Procedures Flu Questionnaire Does the patient have a severe egg allergy?: No Does the patient have severe life threatening allergies?: No Does the patient have a fever or illness today?: No Has the patient ever had Guillain-[place] Syndrome?: No Has the patient ever had any past reaction to a flu shot?: No Immunizations Fluarix Triv [id number] (PF) 45 mcg (15 mcg x 3)/0.5 mL IM syringe Performing Provider: Dago Mari PA-C [facility] [place] [facility] Documented (not given) by: GUERA Ramirez on 04/01/24 15:35 Reason Not Given: Patient Refused Coding Level of Care Code Est Pt Prev Care 40-64y(59461) Diagnoses Essential hypertension I10 Hypertension type: essential hypertension Smoker F17.200 Borderline high cholesterol E78.9 Impaired glucose metabolism R73.09 Additional Codes MARGARITA-7 Assessment Billing - MARGARITA-7 Assessment Tool: MARGARITA-7 Assessment 22047 ([id number]) PHQ-9 - 42019 - PHQ-9 Billing: Yes ([id number]) Vital Signs *Quality* - CPT code: 89993 - 4-10 Minutes ([id number]) Assessment & Plan Assessment & Plan (1) HTN (hypertension): Code(s): I10 - Essential (primary) hypertension Category: Medical Qualifiers: Hypertension type: essential hypertension Qualified Code(s): I10 - E ssential (primary) hypertension Plan: Patient's blood pressure elevated today in office. Has not been taking blood pressure medication for quite some time now as he has ran out of refills. He is willing to restart lisinopril 5 mg and monitor blood pressure at home. Goal blood pressure to be below 140/90 (2) Smoker: Code(s): F17.200 - Nicotine dependence, unspecified, uncomplicated Category: Social Hx Plan: Patient does understand he needs to quit smoking. He is cut down his daily smoking. He is interested in restarting nicotine patches to help him quit smoking. (3) Borderline high cholesterol: Code(s): E78.9 - Disorder of lipoprotein metabolism, unspecified Category: Medical Plan: Patient does have a history of borderline high cholesterol and elevated triglycerides. Will check his fasting lipid panel to ensure stable. Will consider statin therapy if LDL above 160 (4) Impaired glucose metabolism: Code(s): R73.09 - Other abnormal glucose Category: Medical Plan: Patient has a history of impaired glucose metabolism. Will check A1c and fasting blood sugar. Advised on low carbohydrate diet. Orders: Orders Complete Blood Count no Diff 04/01/24 K21.9 - Gastro-esophageal reflux disease without esophagitis Lipid Panel 04/01/24 E78.9 - Disorder of lipoprotein metabolism, unspecified Microalbumin, Random (w Creat) 04/01/24 I10 - Essential (primary) hypertension Influenza [id number] Immunization 04/01/24 Z23 - Encounter for immunization Comprehensive [place]. Panel Fast 04/01/24 I10 - Essential (primary) hypertension Medications: New nicotine 1 patch transdermal DAILY 14 ea 0RF 14 days F17.200 - Nicotine dependence, unspecified, uncomplicated Changed From ProAir HFA 90 mcg/actuation (albuterol sulfate) 2 puffs inhalation Q4-6H 30 days PRN 8.5 grams 3RF shortness of breath or wheezing NS J45.20 - Mild intermittent asthma, uncomplicated To albuterol sulfate 90 mcg/actuation 2 puffs inhalation Q4-6H PRN 8.5 grams 3RF shortness of breath or wheezing 30 days NS J45.20 - Mild intermittent asthma, uncomplicated From lisinopril 5 mg PO DAILY 30 days 30 tabs 3RF I10 - Essential (primary) hypertension To lisinopril 5 mg PO DAILY 90 tabs 1RF 90 days I10 - Essential (primary) hypertension Refilled nicotine 1 patch transdermal DAILY 14 ea 0RF 14 days F17.200 - Nicotine dependence, unspecified, uncomplicated Discontinued alum-mag hydroxide-simeth 200-200-20 mg/5 mL (Maalox Advanced) administer between meals and at bedtime Discontinued Reason: Doctor's Order 5 mL PO 5XD PRN 355 mL 0RF dyspepsia
[2024-04-01 15:32] VITALS: BP 142/92; PULSE 84; O2SAT 97; BMI 33.9
== END 2024-04-01 16:03 | disposition home or self-care (01) ==
PROVIDERS: PCP Physician Assistant; Visit Provider Physician Assistant
DX: Z23 Encounter for immunization (principal)

== ENCOUNTER → 2024-04-01 15:14 | Outpatient (BNVA) | payer OTHER, SELFPAY | PROVIDERS: PCP Physician Assistant; Visit Provider Physician Assistant | DX: Z00.00 Encounter for general adult medical examination without abnormal findings (principal); I10 Essential (primary) hypertension; E78.9 Disorder of lipoprotein metabolism, unspecified; R73.09 Other abnormal glucose; F17.200 Nicotine dependence, unspecified, uncomplicated; Z71.6 Tobacco abuse counseling; K21.9 Gastro-esophageal reflux disease without esophagitis | CPT/HCPCS: 90471; 96127; 99396 ==

== ENCOUNTER 2024-05-05 08:05 | Outpatient (REF) | payer OTHER, SELFPAY ==
[2024-05-05 08:58] LABS: Hematocrit 40.5 % (42.0-52.0); Mean Corpuscular HGB Conc 34.6 g/dl (31.0-36.0); Mean Corpuscular Hemoglobin 28.1 pg (27.0-33.0); Mean Corpuscular Volume 81.3 fL (80.0-98.0); Mean Platelet Volume 10.2 fL (9.4-12.4); Platelet Count 226 X10*3/uL (160-400); Red Blood Count 4.98 X10*6/uL (4.60-5.80); White Blood Count 9.4 X10*3/uL (4.8-10.8)
[2024-05-05 09:32] LABS: Alanine Aminotransferase 41 U/L (0-40); Albumin Level 4.4 g/dL (3.5-5.0); Alkaline Phosphatase 122 U/L (39-117); Anion Gap 9 (12-20); Aspartate Amino Transferase 26 U/L (5-37); Bilirubin Total 0.3 mg/dL (0.0-1.0); Blood Urea Nitrogen 18 mg/dL (9-16); Calcium 8.9 mg/dL (8.4-10.2); Carbon Dioxide 27 mmol/L (22-29); Chloride 110 mmol/L (96-108); Cholesterol 202 mg/dL (<200); Estimated Glomerular Filt Rate > 60; Glucose Fasting 89 mg/dL (60-99); HDL Cholesterol 33 mg/dL (>40); LDL Cholesterol Calculated 108 mg/dL (<100); Potassium 4.1 mmol/L (3.3-5.1); Sodium 142 mmol/L (135-145); Total Protein 7.4 g/dL (6.5-8.0); Triglycerides 307 mg/dL (<150)
[2024-05-05 09:44] LABS: Creatinine Urine 118.79 mg/dL; Microalbum/Creatinine Ratio Ur 6.7 ug/mg cr (<30)
== END 2024-05-05 08:06 | disposition home or self-care (01) ==
LOC: HO.LAB 08:05
PROVIDERS: PCP Physician Assistant; Visit Provider Physician Assistant
DX: E78.9 Disorder of lipoprotein metabolism, unspecified (principal); I10 Essential (primary) hypertension; K21.9 Gastro-esophageal reflux disease without esophagitis; L50.9 Urticaria, unspecified; T78.3XXA Angioneurotic edema, initial encounter
CPT/HCPCS: 36415; 80053; 80061; 82043; 82570; 85027; 86003